=== PATIENT | male | born 1995 | race Caucasian/White ===

== ENCOUNTER 2024-06-19 07:15 | Emergency (ER) | payer SELFPAY ==
[2024-06-19 07:20] VITALS: BP 160/102; PULSE 78; RESP 20; TEMP 36.6; O2SAT 100
[2024-06-19] MEDS: cloNIDine HCL 0.1 MG TABLET PO (07:42)
[2024-06-19 07:47] VITALS: BP 146/83; PULSE 76; RESP 20; O2SAT 99
--- OUTSIDE RECORDS SUMMARY | 2024-06-19 07:48 | XMS_ITS | Clinical Summary ---
Author Organization [facility] Address [address] [place] [address] Care Team Providers Care Program Technician Name Role Phone Garett García MD Primary Care Provider [phone] Source Comments [facility],non-owned Affiliates and Associated Physician Practices is amultiple site organization consisting of ambulatory clinics and hospital sitesin [place], [place], [place] and [place]. This disclosure is being madepursuant to the Care Everywhere program and may not contain all information available regarding this patient. Last updated 17.[facility] Allergies No known active allergies Medications * Be aware that medications may not be up to date on this document. Alwaysverify current medications with the patient. Medication Sig Dispensed Refills Start Date End Date Status methylPREDNISolone (MEDROL DOSEPAK) 4 MG tabletIndications:All ergic contact dermatitis due to plants, except food Take by mouth as directed 21 Tab 0 01/05/2016 Active Social History Tobacco Use Types Packs/Day Years Used Date Smoking Tobacco: Never Alcohol Use Standard Drinks/Week Comments Not Asked 0 (1 standard drink = 0.6 oz pur e alcohol) Sex and Gender Information Value Date Recorded Sex Assigned at Not on file Gender Identity Not on file Sexual Orientation Not on file Last Filed Vital Signs Vital Sign Reading Time Taken Comments Blood Pressure 130/86 01/05/2016 11:03 AM CDT Pulse 76 01/05/2016 11:03 AM CDT Temperature 36.8 C (98.3 F) 01/05/2016 11:03 AM CDT Respiratory Rate 16 01/05/2016 11:03 AM CDT Oxygen Saturation - - Inhaled Oxygen Concentration - - Weight 129.3 kg (285 lb) 01/05/2016 11:03 AM CDT Height - - Body Mass Index - - Plan of Treatment Health Maintenance Due Date Last Done Comments HIV SCREENING 2009 HEPATITIS C SCREENING 11/24/2012 DTAP/TDAP/TD VACCINES (1 - Tdap) 2013 HEPATITIS B VACCINE (1 of 3 - 19+ 3-dose series) 2013 COVID-19 VACCINE (1 - 2023-2 5 season) 2023 INFLUENZA VACCINE (#1) 2023 DEPRESSION SCREENING 04/08/2024 ZOSTER VACCINE (1 of 2) 2044 HIB VACCINE Aged Out No longer eligi ble based on patient's age to complete this topic HPV VACCINE Aged Out No longer eligi ble based on patient's age to complete this topic MENINGOCOCCAL (Group B) VACC INE SHARED DECISION-MAKING Aged Out No longer eligibl e based on patient's age to complete this topic MENINGOCOCCAL GROUPS A/C/Y/W VACCINE Aged Out No longer eligible b ased on patient's age to complete this topic PNEUMOCOCCAL VACCINE Aged Out No long er eligible based on patient's age to complete this topic Care Teams Program Technician Relationship Specialty Start Date End Date Garett García MD [facility] [place] [phone] PCP - General Family Medicine 01/05/16
--- OUTSIDE RECORDS SUMMARY | 2024-06-19 07:49 | XMS_ITS | Referral Summary ---
Author Organization [facility] Address [address] [place] [address] Care Team Providers Care Hot Pipe Gauger Name Role Phone Garett García MD Primary Care Provider [phone]- [phone] Source Comments [facility],non-owned Affiliates and Associated Physician Practices is amultiple site organization consisting of ambulatory clinics and hospital sitesin [place], [place], [place] and [place]. This disclosure is being madepursuant to the Care Everywhere program and may not contain all information available regarding this patient. Last updated 17.[facility] Allergies No known active allergies Medications * [...] Mass Index - - Plan of Treatment Not on file Care Teams Hot Pipe Gauger Relationship Specialty Start Date End Date Garett García MD [address] [place] [phone] PCP - General Family Medicine 01/05/16
--- OUTSIDE RECORDS SUMMARY | 2024-06-19 07:49 | XMS_ITS | Clinical Summary ---
Author Organization [facility] Address [address] [place] [address] Phone Care Team Providers Care Store Sales Consultant Name Role Phone Henry Chavira MD Primary Care Provi juan pablo Allergies No known active allergies Medications multivitamin (DAILY-NERISSA) tablet Take 1 Tablet by mouth daily. Active traZODone (DESYREL) 50 mg tabletIndicatio ns:Adjustment insomnia Take 1 Tablet (50 mg) by mouth daily at bedtime. 90 Tablet 01/07/2024 5:20 PM CDT 01/07/2024 Active nicotine (NICODERM CQ) 21 mg/24 hr patchIndication s:Encounter for smoking cessation counseling Apply 1 Patch to skin as directed every 24 hours. 30 Patch 01/07/2024 5:20 PM CDT 01/07/2024 Active Active Problems Problem Noted Date Diagnosed Date Adjustment insomnia 03/08/2024 Cigarette dependence 12/02/2023 Encounters Date Type Department Care Team Description 06/09/2024 External Device Data [facility] Provider, Abstract 05/12/2024 External Device Data [facility] Provider, Abstract 05/05/2024 External Device Data [facility] Provider, Abstract 04/29/2024 External Device Data [facility] Provider, Abstract 04/29/2024 External Device Data [facility] Provider, Abstract 04/21/2024 External Device Data [facility] Provider, Abstract from Last 3 Months Immunizations Immunization Administration Dates Next Due (ADACEL/BOOSTRIX)(10 YR UP) TDAP VACCINE, 0.5ML, IM 08/07/2023,11/14/2010 (HAVRIX/VAQTA)(12 MO-18 YRS) HEPATITIS A VACCINE 0.5 ML PED/ADOL 2 DOSE, IM 07/28/2008,11/17/2007 (INFANRIX)(6 WKS-6 YRS) DIPT HERIA, TETANUS TOXOIDS, AND ACCELLULAR PERTUSSIS VACCINE (DTAP), 0.5 ML IM 11/11/2000 (IPOL)(6 WKS AND UP) POLIOVI MARIVEL VACCINE, INACTIVATED (IPV), 3 DOSE, SUBCUT OR IM 06/26/1995,04/17/1995,01/25/1995 (KINRIX/QUADRACEL)(4 - 6 YRS ) DIPHTHERIA, TETANUS TOXOIDS AND ACELLULAR PERTUSSIS VACCINE, POLIO, INACTIVATED (DTAP-IPV) (PF) IM 11/11/2000 (M-M-R II/PRIORIX)(12 MO UP) MEASLES, MUMPS AND RUBELLA VIRUS VACCINE, 0.5 ML IM/SUBCUT 11/11/2000,01/01/1996 (MENACTRA)(9 MO-55 YR) MENIN GOCOCCAL POLYSACCHARIDE A, C, Y AND W-135 DIPTHERIA TOXOID CONJUGATE VACCINE, (PF), 0.5ML, IM 11/17/2007 (RECOMBIVAX HB/ENGERIX-B)(11 YR UP) HEPATITIS B VACCINE 10 MCG/1 ML OR 20 MCG/1 ML ADOL OR ADULT 2 - 3 DOSE PF, IM 11/17/2007 DTP Hib Combined Vaccine IM 01/01/1996,0 06/26/1995,04/17/1995,01/25 Hepatitis B Vaccine, Unspeci fied Formulation 06/26/1995,01/25/1995,1994 INFLUENZA VACCINE TRIVALENT SPLIT VIRUS, (6 MOS UP), 0.5ML (PF), IM 01/01/2024 Family History Medical History Relation Name Comments Thyroid Disease Father Colon Cancer Maternal Grandmother Diabetes Maternal Grandmother Throat Cancer Mother Cured Thyroid Disease Mother Colon Cancer Paternal Grandfather COPD Paternal Grandmother Thyroid Disease Sister Lung Cancer Neg Hx Prostate Cancer Neg Hx Relation Name Status Comments Father Alive Maternal Grandmother Mother Alive Paternal Grandfather Paternal Grandmother Sister Alive Social History Tobacco Use Types Packs/Day Years Used Date Smoking Tobacco: Every Day Cigarettes 0.8 7.2 Started: 2018 Passive Smoke Exposure: Current Smokeless Tobacco: Never Tobacco Cessation:Ready to Q uit: Not Asked; Counseling Given: Not Answered Alcohol Use Standard Drinks/Week Comments Yes 0 (1 standard drink = 0.6 oz pur e alcohol) socially Feeling Safe Answer Date Recorded Are you in a relationship wi th someone who hurts you emotionally and/or physically? No 08/07/2023 Sex and Gender Information Value Date Recorded Sex Assigned at Not on file Legal Sex Male 6:22 PM CDT Gender Identity Not on file Sexual Orientation Not on file Last Filed Vital Signs Vital Sign Reading Time Taken Comments Blood Pressure 134/83 01/01/2024 1:19 PM CDT Pulse 80 01/01/2024 1:19 PM CDT Temperature 36.9 C (98.4 F) 01/01/2024 1:19 PM CDT Respiratory Rate 20 12/02/2023 2:29 PM CDT Oxygen Saturation 97% 01/01/2024 1:19 PM CDT Inhaled Oxygen Concentration - - Weight 104.3 kg (230 lb) 01/01/2024 1:19 PM CDT Height 170.2 cm (5' 7 ) 01/01/2024 1:19 PM CDT Body Mass Index 36.02 01/01/2024 1:19 PM CDT Plan of Treatment Health Maintenance Due Date Last Done Comments DTAP/TDAP/TD VACCINES (8 - Td or Tdap) 08/06/2033 08/07/2023, 11/14/2010, 11/11/2000, Additional history exists HEPATITIS B VACCINES Completed 11/17/2007, 06/26/1995, 01/25/1995, Additional history exists INFLUENZA VACCINE Completed 01/01/2024 HPV VACCINES Aged Out No longer eligi ble based on patient's age to complete this topic Insurance [id number] RX S[employer] PLANS (INTERNAL) [facility] [employer] Member Subscriber Plan / Payer (Ef fective 2023-Present) Name:Herve Duvall Relation to Subscriber:Self Name:Herve Duvall Subscriber ID:Not on file Payer ID:Not on file Group ID:[id number] Type:RX Commercial Address: [address] [place] Care Teams Store Sales Consultant Relationship Specialty Start Date End Date Henry Chavira MD [address] [place] [phone] PCP - General Internal Medicine 08/30/23
--- OUTSIDE RECORDS SUMMARY | 2024-06-19 07:49 | XMS_ITS | Patient Health Summary ---
Author Organization [facility] Address [address] [place] [address] Care Team Providers Care Frog Farmer Name Role Phone Garett García MD Primary Care Provider [phone]- [phone] Note from [facility],non-owned Affiliates and Associated Physician Practices is amultiple site organization consisting of ambulatory clinics and hospital sitesin [place], [place], [place] and [place]. This disclosure is being madepursuant to the Care Everywhere program and may not contain all information available regarding this patient. Last updated 17.[facility] Allergies No known active allergies Medications * Be aware that medications may not be up to date on this document. Alwaysverify current medications with the patient. * methylPREDNISolone (MEDROL DOSEPAK) 4 MG tablet(Started 01/05/2016) Take by mouth as directed Social History Tobacco Use Types Packs/Day Years [...] - - Body Mass Index - - Care Teams Frog Farmer Relationship Specialty Start Date End Date Garett García MD [address] [place] [phone] PCP - General Family Medicine 01/05/16
[2024-06-19 09:15] VITALS: BP 129/69; PULSE 76; RESP 20
--- NOTE | 2024-06-19 09:52 | ED_ITS ---
HPI - Anxiety General Chief Complaint: Anxiety Stated Complaint: panic attack/anxiety Time Seen by Provider: 06/19/24 07:19 Source: patient Mode of arrival: EMS Limitations: no limitations History of Present Illness HPI narrative: 28-year-old with word by EMS from home with complaints of having anxiety who symptoms for past 2 days. He states that he has been using methamphetamine. He presently denies having any chest pain or shortness of breath. Patient states that he was sober for few years , started using Meth again in the last few days . Related Data Allergies Allergy/AdvReac Type Severity Reaction Status Date / Time No Known Allergies Allergy Verified 06/19/24 07:28 Review of Systems Review of Systems: All systems reviewed & are unremarkable except as noted in HPI and below Constitutional: Constitutional: Reports no additional constitutional complaints Eyes: Eyes: Reports no additional eye complaints ENT: Reports system reviewed and no additional complaints, except as documented Cardiovascular: Cardiovascular: Reports no additional cardiovascular complaints Respiratory: Respiratory: Reports no additional respiratory complaints Gastrointestinal: Gastrointestinal: Reports no additional gastrointestinal complaints Musculoskeletal: Musculoskeletal: Reports no additional musculoskeletal complaints Neurologic: Reports system reviewed and no additional complaints, except as documented Psychiatric: Psychiatric: Reports no additional psychiatric complaints Endocrine: Endocrine: Reports no additional endocrine complaints Hematologic/Lymphatic: Hematologic/Lymphatic: Reports no additional hematologic/lymphatic complaints PMFSH Social History Social History Substance use type: methamphetamine Exam Narrative: GENERAL: Well-appearing, well-nourished, and in no acute distress. Remains calm and quiet does not appear to be an anxiety state HEAD: Normocephalic, atraumatic. EYES: PERRLA and EOMI. ENT: Nares clear, no rhinorrhea or epistaxis. Mucous membranes moist. NECK: Supple. CHEST: Clear to auscultation. No respiratory distress. HEART: Regular rate and rhythm. No murmur heard. Normal peripheral pulses. ABDOMEN: Soft, nontender, nondistended, normal active bowel sounds. EXTREMITIES: Normal range of motion. No edema. SKIN: Warm, dry, no rash. NEURO: No focal deficits. Alert and oriented x3. PSYCH: Normal mood and affect. Course Course Emergency Course: Patient was given clonidine. Patient rested for more than couple hours in no acute distress he is feeling fine also advised him for considering detox Vital Signs Vital signs: Vital Signs Temperature 36.6 C 06/19/24 07:20 Pulse Rate 78 06/19/24 07:20 Respiratory Rate 20 06/19/24 07:20 Blood Pressure 160/102 H 06/19/24 07:20 Pulse Oximetry 100 06/19/24 07:20 Oxygen Delivery Room Air 06/19/24 07:20 Temperature 36.6 C 06/19/24 07:20 Pulse Rate 76 06/19/24 09:15 Respiratory Rate 20 06/19/24 09:15 Blood Pressure 129/69 06/19/24 09:15 Pulse Oximetry 99 06/19/24 07:47 Oxygen Delivery Room Air 06/19/24 07:20 Discharge Plan Discharge Clinical Impression: Acute anxiety, Methamphetamine abuse Patient Disposition: Home, Self-Care Condition: Stable Instructions: Antibiotic Form, Methamphetamine Use Disorder (ED) Additional Instructions: Consider detox program. Follow-up with your primary doctor very Patient Language: Tamazight Follow-up/Referrals: Shadia Freedman DO [Physician] - UNKNOWN,DOCTOR [Primary Care Provider] - Time of Disposition: 09:54
[2024-06-19 10:15] VITALS: BP 147/98; PULSE 77; RESP 16; O2SAT 100
== END 2024-06-19 10:16 | disposition home or self-care (01) ==
PROVIDERS: Emergency Provider Family Medicine
DX: F41.9 Anxiety disorder, unspecified (principal); F15.10 Other stimulant abuse, uncomplicated
CPT/HCPCS: 99283; A9270